=== PATIENT | female | born 1940 | race Caucasian/White ===

== ENCOUNTER 2017-04-11 01:07 | Emergency (ER) | payer OTHER ==
--- NOTE | 2017-04-11 01:21 | CPEKG ---
Heart Rate: 72 RR Interval: 833 P-R Interval: 168 QRSD Interval: 86 QT Interval: 416 QTC Interval: 456 P [place]: 40 QRS [place]: 39 T Wave [place]: -8 EKG Severity - BORDERLINE ECG - EKG Impression: SINUS RHYTHM EKG Impression: BORDERLINE T ABNORMALITIES, DIFFUSE LEADS Electronically Signed By: Che Hicks 11-Apr-2017 03:56:19
[2017-04-11] MEDS ORDERED: ASPIRIN 81 MG CHEWABLE TAB PO ONE (01:35)
--- NOTE | 2017-04-11 01:38 | EDPHY ---
H & P Stated Complaint: CHEST PAIN HPI/ROS: This 76-year-old female with past medical history of breast cancer and hypertension as well as hyperthyroidism presents to the emergency department tonight after waking up with chest discomfort at about 1:00 a.m.. She states she woke up feeling like her right lung was hurting. She described it as a dull discomfort that did not radiate into her neck, arms, jaw, or back. After about 10 minutes she then had discomfort in the center of her chest which radiated down into her epigastric region. Her right long no longer hurt. The centralized discomfort and upper abdominal discomfort lasted for about 30 minutes. It resolved spontaneously. There were no aggravating or alleviating factors. When the discomfort first came she rated it at about 6/10. She had no pain on my evaluation. She denied nausea, vomiting, shortness of breath, or diaphoresis. She felt fine when she went to sleep. She and her had tea and pretzels for a snack prior to going to bed. Her last alcoholic beverage was the day before yesterday. She had 2 episodes of chest pain in the past and had a normal stress test but this was a number of years ago. Her gave her a full strength aspirin prior to coming to the emergency department. Patient admits to having cold symptoms for the last week consisting of a sore throat and sniffles. This has mostly resolved. She has been taking Sudafed and Zycam. She has no leg pain or swelling and has not had any long trips or travel recently. REVIEW OF SYSTEMS: Constitutional: No fever, no chills. Eyes: No discharge. ENT: No sore throat. Respiratory: No cough, no shortness of breath. Cardiac: See HPI. Gastrointestinal: See HPI. Genitourinary: No dysuria. Musculoskeletal: No back pain. Skin: No rashes. Neurological: No headache. Source: Patient, Family Exam Limitations: No limitations - Personal History Current Tetanus/Diphtheria Vaccine: Yes Current Tetanus Diphtheria and Acellular Pertussis (TDAP): Yes - Medical/Surgical History PMH: PMH: Breast cancer treated with radiation and a right lumpectomy, hypertension , hyperthyroidism. Patient denies diabetes or hypercholesterolemia. 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 FH: There is no family history of premature coronary artery disease. Her father from a heart attack at age 67. Her mother lived to be 97. Her older brother and sister are still alive. Allergies: tetracyclines which gives her a headache Medications: lisinopril/hydrochlorothiazide 20 mg/12.5 mg daily, methimazole 2.5 mg daily, Sudafed and Zycam PRN Primary care provider is Dr. Nikole Rust Hx Asthma: No Hx Chronic Respiratory Disease: No Hx Diabetes: No Hx Cardiac Disease: No Hx Renal Disease: No Hx Cirrhosis: No Hx Alcoholism: No Hx HIV/AIDS: No Hx Splenectomy or Spleen Trauma: No Other PMH: Breast cancer 1998, 2014. Knee surgery 08/2014. Facial surgery 01/2015 to remove cancerous cell. - Social History Smoking Status: Never smoked Alcohol Use: Occasionally Drug Use: None Additional Social History: . - Physical Exam Exam: General Appearance: Alert, no distress. Eyes: Pupils equal and round no pallor or injection. ENT, Mouth: Mucous membranes are moist. Respiratory: There are no retractions, lungs are clear to auscultation. Cardiovascular: Regular rate and rhythm. No murmur, gallop or rubs. Gastrointestinal: Abdomen is soft and nontender, no masses, bowel sounds normal. Neurological: Awake and alert, sensory and motor exams grossly normal. Skin: Warm and dry, no rashes. Musculoskeletal: Neck is supple nontender. Extremities are symmetrical, full range of motion. Psychiatric: Patient is oriented X 3, there is no agitation. DIFFERENTIAL DIAGNOSIS: After history and physical exam differential diagnosis was considered for but not limited to: Acute [place], angina, pleurisy, infiltrate or effusion, pulmonary embolism, aortic dissection, gastroesophageal reflux, gastritis. Constitutional: Initial Vital Signs Temperature (C) 97.7 F 04/11/17 01:08 Heart Rate 74 04/11/17 01:08 Respiratory Rate 18 04/11/17 01:08 Blood Pressure 189/89 H 04/11/17 01:08 O2 Sat (%) 94 04/11/17 01:08 O2 Delivery Mode Room Air Allergies/Adverse Reactions: Tetracyclines Allergy (Verified 09/14/15 09:36) Home Medications: Medication Instructions Recorded Lyprimazol 09/14/15 Mithemizol 09/14/15 Medical Decision Making - Diagnostics EKG Interpretation: EKG #1: Normal sinus rhythm, heart rate 72, borderline T-wave abnormalities diffuse leads. NO CHANGE from EKG dated 08/21/2016. EKG #2: Normal sinus rhythm, heart rate 70, borderline T-wave abnormalities diffuse leads. NO CHANGE from prior. Imaging Results: One-view portable chest x-ray showed no infiltrate or effusion. No pneumothorax , normal heart size. Surgical clips right side due to prior lumpectomy. Imaging: I viewed and interpreted images myself ED Course/Re-evaluation: The patient was seen and examined. Vital signs reviewed. Her initial set of vital signs showed an elevated blood pressure which came down without intervention. She had already been given an aspirin prior to arrival. Her EKG showed NSR with borderline T-wave abnormalities but NO CHANGE from prior EKG dated 08/21/2014. Chest x-ray showed no acute abnormalities. Her CBC was completely normal. Her chemistry panel was normal including liver function tests and lipase. Her troponin was normal and her D-dimer was normal. Patient was offered observation overnight but has declined. She will, however, agree to a repeat EKG and troponin at hour 3 and if these are normal and no further chest pain, she will be allowed to go home to follow up with her primary care provider on Wednesday without fail. She understands that she is at moderate risk of having a major adverse event (HEART SCORE 4 with 12-16% risk for major cardiac event) event and despite her reassuring work-up this evening that she could still go home and have a disabling or life-threatening cardiac event. She was advised to take an aspirin daily until follow up. She will return to the ED immediately if any further problems or concerns. EKG #2: No change Troponin #2: <0.012 - Data Points Laboratory Results: Laboratory Results 04/11/17 01:30 04/11/17 01:30 04/11/17 04/11/17 04/11/17 04:10 01:30 01:30 WBC RBC Hgb Hct MCV MCH MCHC RDW Plt Count MPV Neut % (Auto) Lymph % (Auto) Wake % (Auto) Eos % (Auto) Baso % (Auto) Nucleat RBC Rel Count Absolute Neuts (auto) Absolute Lymphs (auto) Absolute Monos (auto) Absolute Eos (auto) Absolute Basos (auto) Absolute Nucleated RBC Immature Gran % Immature Gran # D-Dimer 0.36 ug/mLFEU ug/mLFEU (0.00-0.50) Sodium 143 mEq/L mEq/L (134-144) Potassium 4.0 mEq/L mEq/L (3.5-5.2) Chloride 105 mEq/L mEq/L (97-110) Carbon Dioxide 24 mEq/l mEq/l (22-31) Anion Gap 14 mEq/L mEq/L (8-16) BUN 18 mg/dL mg/dL (7-23) Creatinine 0.7 mg/dL mg/dL (0.6-1.0) Estimated GFR > 60 Glucose 96 mg/dL mg/dL (70-100) Calcium 9.6 mg/dL mg/dL (8.5-10.4) Total Bilirubin 0.3 mg/dL mg/dL (0.1-1.4) Conjugated Bilirubin 0.0 mg/dL mg/dL (0.0-0.5) Unconjugated Bilirubin 0.3 mg/dL mg/dL (0.0-1.1) AST 27 IU/L IU/L (14-46) ALT 40 IU/L IU/L (9-52) Alkaline Phosphatase 89 IU/L IU/L (38-126) Troponin I Pending < 0.012 ng/mL ng/mL (0.000-0.034) Total Protein 6.1 g/dL L g/dL (6.3-8.2) Albumin 3.6 g/dL g/dL (3.5-5.0) Lipase 102 IU/L IU/L (23-300) 04/11/17 01:30 WBC 5.26 10^3/uL 10^3/uL (3.80-9.50) RBC 4.35 10^6/uL 10^6/uL (4.18-5.33) Hgb 14.3 g/dL g/dL (12.6-16.3) Hct 40.3 % % (38.0-47.0) MCV 92.6 fL fL (81.5-99.8) MCH 32.9 pg pg (27.9-34.1) MCHC 35.5 g/dL g/dL (32.4-36.7) RDW 13.0 % % (11.5-15.2) Plt Count 218 10^3/uL 10^3/uL (150-400) MPV 8.9 fL fL (8.7-11.7) Neut % (Auto) 55.1 % % (39.3-74.2) Lymph % (Auto) 31.6 % % (15.0-45.0) Wake % (Auto) 8.9 % % (4.5-13.0) Eos % (Auto) 3.4 % % (0.6-7.6) Baso % (Auto) 0.4 % % (0.3-1.7) Nucleat RBC Rel Count 0.0 % % (0.0-0.2) Absolute Neuts (auto) 2.90 10^3/uL 10^3/uL (1.70-6.50) Absolute Lymphs (auto) 1.66 10^3/uL 10^3/uL (1.00-3.00) Absolute Monos (auto) 0.47 10^3/uL 10^3/uL (0.30-0.80) Absolute Eos (auto) 0.18 10^3/uL 10^3/uL (0.03-0.40) Absolute Basos (auto) 0.02 10^3/uL 10^3/uL (0.02-0.10) Absolute Nucleated RBC 0.00 10^3/uL 10^3/uL (0-0.01) Immature Gran % 0.6 % % (0.0-1.1) Immature Gran # 0.03 10^3/uL 10^3/uL (0.00-0.10) D-Dimer Sodium Potassium Chloride Carbon Dioxide Anion Gap BUN Creatinine Estimated GFR Glucose Calcium Total Bilirubin Conjugated Bilirubin Unconjugated Bilirubin AST ALT Alkaline Phosphatase Troponin I Total Protein Albumin Lipase Medications Given: Discontinued Medications Aspirin (Aspirin) 324 mg PO EDNOW ONE Stop: 04/11/17 01:36 Last Admin: 04/11/17 01:40 Dose: Not Given Departure - Departure Disposition: Home, Routine, Self-Care Clinical Impression: Chest pain Qualifiers: Chest pain type: unspecified Qualified Code(s): R07.9 - Chest pain, unspecified Condition: Good Instructions: Chest Pain (ED) Additional Instructions: Call first thing Wednesday morning to arrange follow up ON WEDNESDAY with your primary care provider without fail. You will need to have further evaluation ( treadmill or nuclear stress test). Tell them you are an ER follow up for chest pain. Take an Aspirin daily until you see your provider. RETURN TO THE ER IMMEDIATELY IF ANY RECURRENCE OF CHEST DISCOMFORT OR DISCOMFORT IN YOUR ARMS, NECK, JAW OR BACK OR ANY OTHER CONCERNS. Referrals: Nikole Rust MD [Medical Doctor] - 1 day without fail
[2017-04-11 01:43] VITALS: RESP 16
[2017-04-11 01:43] LABS: % IMMATURE GRANULYOCYTES 0.6 % (0.0-1.1); ABSOLUTE IMMATURE GRANULOCYTES 0.03 10^3/uL (0.00-0.10); ADD DIFF? NO; ADD MORPH? NO; ADD SCAN? NO; ATYPICAL LYMPHOCYTE FLAG 20 (0-99); FRAGMENT RBC FLAG 0 (0-99); HEMATOCRIT 40.3 % (38.0-47.0); HEMOGLOBIN 14.3 g/dL (12.6-16.3); LEFT SHIFT FLG 0 (0-99); LIPEMIA HEMOLYSIS FLAG 90 (0-99); MEAN CELL HEMOGLOBIN 32.9 pg (27.9-34.1); MEAN CELL HEMOGLOBIN CONCENTR. 35.5 g/dL (32.4-36.7); MEAN CELL VOLUME 92.6 fL (81.5-99.8); MEAN PLATELET VOLUME 8.9 fL (8.7-11.7); PLATELET CLUMPS FLAG 0 (0-99); PLATELET COUNT 218 10^3/uL (150-400); RED BLOOD CELL COUNT 4.35 10^6/uL (4.18-5.33)
[2017-04-11 01:56] LABS: ALANINE AMINOTRANSFERASE 40 IU/L (9-52); ALBUMIN 3.6 g/dL (3.5-5.0); ALKALINE PHOSPHATASE 89 IU/L (38-126); ANION GAP 14 mEq/L (8-16); ASPARTATE AMINOTRANSFERASE 27 IU/L (14-46); BILIRUBIN,TOTAL 0.3 mg/dL (0.1-1.4); BILIRUBIN-UNCONJUGATED 0.3 mg/dL (0.0-1.1); CALCIUM 9.6 mg/dL (8.5-10.4); CARBON DIOXIDE 24 mEq/l (22-31); CHLORIDE 105 mEq/L (97-110); CREATININE 0.7 mg/dL (0.6-1.0); GLOMERULAR FILTRATION RATE > 60; GLUCOSE 96 mg/dL (70-100); SODIUM 143 mEq/L (134-144); TOTAL PROTEIN 6.1 g/dL (6.3-8.2)
[2017-04-11 02:07] LABS: TROPONIN I < 0.012 ng/mL (0.000-0.034)
--- NOTE | 2017-04-11 04:51 | CPEKG ---
Heart Rate: 70 RR Interval: 857 P-R Interval: 176 QRSD Interval: 86 QT Interval: 424 QTC Interval: 458 P [place]: 52 QRS [place]: 57 T Wave [place]: -22 EKG Severity - BORDERLINE ECG - EKG Impression: SINUS RHYTHM EKG Impression: BORDERLINE T ABNORMALITIES, DIFFUSE LEADS Electronically Signed By: Che Hicks 12-Apr-2017 02:26:46
[2017-04-11 04:58] VITALS: BP 144/86; PULSE 73; TEMP 97.3; O2SAT 94
== END 2017-04-11 04:58 | disposition home or self-care (01) ==
LOC: CED 01:07
DX: R07.9 Chest pain, unspecified (principal); I10 Essential (primary) hypertension; Z85.3 Personal history of malignant neoplasm of breast
CPT/HCPCS: 71010-PO; 80048-PO; 80076-PO; 83690-PO; 84484-PO; 85025-PO; 85378-PO